=== PATIENT | male | born 1930 | race Caucasian/White ===

== ENCOUNTER 2017-10-08 17:05 | Inpatient (IN) | payer MEDICARE ==
[~2017-10-08] VITALS: Ht 175.3 cm; Wt 68.2 kg
[~2017-10-08 17:05] MED LIST: AMIODARONE HCL200 MG PO; ASPIR 8181 MG PO; ATORVASTATIN CA40 MG PO; CARVEDILOL25 MG PO; CITALOPRAM HBR20 MG PO; FOLBIC TABLET1 EACH PO; FUROSEMIDE40 MG PO; GLIMEPIRIDE1 MG PO; METFORMIN HCL1000 MG PO; NAMENDA10 MG PO; TAMSULOSIN HCL0.4 MG PO; ZESTRIL20 MG PO
[2017-10-08 17:46] LABS: BASOPHILS # (AUTO) 0.1 (0.0-0.1); BASOPHILS % 0.6 % (0.0-1.0); EOSINOPHILS # (AUTO) 0.2 (0.0-0.4); HEMATOCRIT 30.9 % (38.2-49.6); HEMOGLOBIN 10.9 g/dL (14.0-18.0); LYMPHOCYTES # (AUTO) 2.1 (1.0-3.2); LYMPHOCYTES % 25.8 % (18.0-39.1); MEAN CORPUSCULAR HEMOGLOBIN 33.1 pg (28-32); MEAN CORPUSCULAR HGB CONC 35.3 g/dL (31-35); MEAN CORPUSCULAR VOLUME 93.9 fL (81-99); MONOCYTES # (AUTO) 0.5 (0.2-0.8); MONOCYTES % 6.7 % (4.4-11.3); NEUTROPHILS # (AUTO) 5.1 (2.1-6.9); NEUTROPHILS % 63.5 % (38.7-80.0); PLATELET COUNT 195 x10e3/uL (140-360); RED BLOOD COUNT 3.29 x10e6/uL (4.3-5.7); RED CELL DISTRIBUTION WIDTH 13.2 % (11.7-14.4)
[2017-10-08 17:50] LABS: INR 1.06
[2017-10-08 17:51] LABS: PARTIAL THROMBOPLASTIN TIME 28.1 seconds (23.8-35.5)
[2017-10-08 17:57] LABS: ALBUMIN 3.2 g/dL (3.5-5.0); ALBUMIN/GLOBULIN RATIO 0.9 (0.8-2.0); ANION GAP 15.5 mmol/L (8-16); CALCIUM 9.4 mg/dL (8.4-10.2); CREATININE, SERUM 1.81 mg/dL (0.72-1.25); POTASSIUM 3.5 mmol/L (3.5-5.1)
[2017-10-08 18:04] LABS: CREATINE KINASE MB 2.3 ng/mL (0-5.0)
[2017-10-08 18:21] LABS: BILIRUBIN,URINE NEGATIVE (NEGATIVE); CLARITY,URINE SL CLOUDY (CLEAR); COLOR,URINE YELLOW (YELLOW); KETONES,URINE NEGATIVE (NEGATIVE); LEUKOCYTE ESTERASE ,URINE NEGATIVE (NEGATIVE); NITRITE,URINE NEGATIVE (NEGATIVE); PROTEIN,URINE DIPSTICK TRACE (NEGATIVE); URINE UROBILINOGEN 0.2 mg/dL (0.2 - 1)
[2017-10-08 18:31] LABS: AMORPHOUS SEDIMENT,URINE MODERATE (FEW); BACTERIA,URINE MODERATE /HPF
--- NOTE | 2017-10-08 18:37 | Diagnostic Imaging Report ---
PROCEDURE: A single AP view of the chest. COMPARISON: Patients [facility], , CHEST SINGLE (PORTABLE), 01/31/2017, 16:14. INDICATIONS: LEFT SIDE WEAKNESS FINDINGS: Lines/tubes: None. Lungs: The lungs are well inflated and grossly clear. There is no evidence of pneumonia or pulmonary edema. Pleura: There is no pleural effusion or pneumothorax. Heart and mediastinum: Cardiac silhouette is unremarkable. Pulmonary vasculature is normal. Atherosclerotic calcification of the aortic arch. Bones: No acute bony abnormality. Degenerative changes in the right glenohumeral joint. IMPRESSION: 1. No acute cardiopulmonary abnormalities. Uriel Ross M.D. Dictated by: Uriel Ross M.D. on 10/08/2017 at 18:42 Electronically approved by: Uriel Ross M.D. on 10/08/2017 at 18:42
[2017-10-08] MEDS ORDERED: SODIUM CHLORIDE 0.9% 500ML 500 ML IV STA (18:43)
--- NOTE | 2017-10-08 19:43 | Diagnostic Imaging Report ---
EXAMINATION: Head CT without contrast. HISTORY:Altered mental status and left-sided weakness. COMPARISON:CT brain from 01/31/2017. TECHNIQUE: Multidetector axial images were obtained from the foramen magnum to the vertex without contrast. The images were reconstructed using brain and bone algorithms. Thin section brain images were reformatted into coronal and sagittal planes. Intravenous contrast: None IMAGE QUALITY: Acceptable. FINDINGS: Skull/scalp: No lytic or blastic. lesions. No surgical changes. Parenchyma: Nonspecific bilateral frontoparietal patchy white matter hypodensity are likely related to small vessel ischemic changes. 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 No acute hemorrhage, mass or acute major vascular territorial infarct. Arteries: No density suggestive of thrombosis. Dural sinuses: No abnormal density suggestive of thrombosis. Ventricles: Moderate compensated dilatation due to volume loss. Extra-axial spaces: No abnormal density. Brain volume: Generalized age-related cerebral volume loss. Craniocervical junction: No mass, Chiari malformation, or basilar invagination. Sella: No mass. Paranasal/mastoid sinuses: Complete opacification of right maxillary and frontal sinus. Moderate mucosal thickening in bilateral ethmoid sinus. IMPRESSION: 1. No acute intracranial abnormality. No change since CT brain from 01/31/2017. 2. Generalized age-related cerebral volume loss. 3. Mild supratentorial white matter microvascular ischemic changes. Signed by: Dr. Susanne Ritter M.D. on 10/08/2017 7:40 PM
[2017-10-08] MEDS: SODIUM CHLORIDE 0.9% 1000ML 1,000 ML IV SCH (19:52)
[2017-10-08] MEDS ORDERED: ONDANSETRON HCL INJ 2 MG/ML VIAL IV PRN (20:00)
[2017-10-08 20:40] VITALS: BP 124/57
[2017-10-08 21:00] VITALS: BP 124/57
[2017-10-09] VITALS (9 sets, daily range): BP systolic 136–153; BP diastolic 62–71
[2017-10-09] MEDS ORDERED: FERROUS SULFAT325 MG PO (00:54)
[2017-10-09] MEDS ORDERED: FOLIC ACID1 MG PO (00:54)
[2017-10-09] MEDS ORDERED: SENNA LAXATIVE1 EACH PO (00:54)
[2017-10-09] MEDS ORDERED: CLONIDINE HCL0.1 MG PO (00:54)
[2017-10-09] MEDS ORDERED: MULTIVITAMINS1 EAC6 PO (00:54)
[2017-10-09] MEDS ORDERED: NAMENDA10 MG PO (00:54)
[2017-10-09] MEDS ORDERED: ACETAMINOPHEN325 M1 PO (00:54)
[2017-10-09] MEDS ORDERED: RIVASTIGMINE1.5 MG PO (00:54)
[2017-10-09] MEDS ORDERED: CARVEDILOL12.5 MG PO (00:54)
[2017-10-09 05:11] LABS: BASOPHILS % 0.3 % (0.0-1.0); EOSINOPHILS # (AUTO) 0.2 (0.0-0.4); EOSINOPHILS % 3.1 % (0.0-6.0); HEMATOCRIT 27.6 % (38.2-49.6); HEMOGLOBIN 9.7 g/dL (14.0-18.0); LYMPHOCYTES # (AUTO) 2.6 (1.0-3.2); LYMPHOCYTES % 34.6 % (18.0-39.1); MEAN CORPUSCULAR HEMOGLOBIN 33.6 pg (28-32); MEAN CORPUSCULAR HGB CONC 35.1 g/dL (31-35); MEAN CORPUSCULAR VOLUME 95.5 fL (81-99); MONOCYTES # (AUTO) 0.5 (0.2-0.8); MONOCYTES % 6.7 % (4.4-11.3); NEUTROPHILS % 54.9 % (38.7-80.0); PLATELET COUNT 182 x10e3/uL (140-360); RED BLOOD COUNT 2.89 x10e6/uL (4.3-5.7); RED CELL DISTRIBUTION WIDTH 13.2 % (11.7-14.4)
[2017-10-09 05:38] LABS: ANION GAP 13.4 mmol/L (8-16); CALCIUM 8.9 mg/dL (8.4-10.2); CREATININE, SERUM 1.66 mg/dL (0.72-1.25); POTASSIUM 3.4 mmol/L (3.5-5.1)
[2017-10-09] MEDS ORDERED: ACETAMINOPHEN 325 MG TAB PO PRN (07:30)
--- NOTE | 2017-10-09 08:10 | History and Physical ---
REFERRING PHYSICIAN: Dr. Tucker HISTORY OF PRESENT ILLNESS: The patient is an 87-year-old man. He has a history of a prior CABG with a AYALA graft to his LAD. He also has a history of atrial fibrillation. He was previously followed by Dr. Caio Vergara. He also has a history of some baseline dementia. He is on Namenda at the nursing facility. Apparently, they were bathing the patient yesterday and he developed left arm and leg weakness and a left facial droop. He became more disoriented and confused. He subsequently went to the emergency department. His symptoms resolved within 12 hours. PAST SURGICAL HISTORY: Status post coronary artery bypass grafting as noted above. PAST MEDICAL HISTORY 1. Atrial fibrillation. 2. Organic brain syndrome. 3. Diabetes. SOCIAL HISTORY: The patient lives at a nursing facility. He is not a drinker or smoker. FAMILY HISTORY: Noncontributory. ALLERGIES: HYDROCHLOROTHIAZIDE. REVIEW OF SYSTEMS: There is no history of fevers. He did not complain of headaches. He denied neck pain. There is no chest pain or difficulty breathing or cough. He did not have nausea or vomiting. There was no leg edema. He did have transient on the left side along with transient facial droop. PHYSICAL EXAMINATION VITALS: The patient is afebrile. The blood pressure is 142/66, pulse 62. HEENT: Shows no facial swelling or erythema. The nasal mucosa is normal. The oropharynx is normal. LYMPHATICS: Shows no submandibular, cervical or supraclavicular lymphadenopathy. CARDIAC: Reveals a regular rate and rhythm with normal S1 and S2. There are no murmurs or rubs. LUNGS: Auscultation of the lungs reveals clear breath sounds bilaterally. There is no wheezing. ABDOMEN: Soft and nontender. There is no rebound or guarding. EXTREMITIES: Shows no leg edema or calf tenderness. There is no cyanosis or clubbing. SKIN: Shows no rashes. NEUROLOGICAL: Shows the patient to be disoriented. LABORATORY DATA: The white blood cell count is 7.3, hemoglobin 9.7 and the platelet count is 182,000. The BUN to creatinine ratio is 28 to 1.66. The other electrolytes are within normal limits. IMPRESSION 1. Metabolic encephalopathy. 2. Transient ischemic attacks with underlying atrial fibrillation. 3. Anemia secondary to chronic blood loss. 4. Stage 3 chronic renal failure. 5. Diabetes. 6. Atrial fibrillation. PLAN 1. The patient will have a neurological workup. 2. Carotid duplex and cardiology evaluation. 3. Physical therapy. 4. Nutritional evaluation. 5. Discussed potential need for anticoagulation or further carotid imaging with cardiology and neurology. Job#: [id number] RI [email or web address]
[2017-10-09] MEDS ORDERED: TAMSULOSIN HCL 0.4 MG CAP PO SCH (09:00)
[2017-10-09] MEDS: RIVASTIGMINE TARTRATE 1.5 MG CAP PO SCH ×2 (09:25→17:31)
[2017-10-09] MEDS: CARVEDILOL 12.5 MG TAB PO SCH ×2 (09:25→17:31)
[2017-10-09] MEDS: AMIODARONE HCL 200 MG TAB PO SCH (09:25)
[2017-10-09] MEDS: ASPIRIN 81 MG CHEW TAB PO SCH (09:25)
[2017-10-09] MEDS: CITALOPRAM HYDROBROMIDE 20 MG TAB PO SCH (09:25)
[2017-10-09] MEDS: FOLIC ACID 1 MG TAB PO SCH (09:26)
[2017-10-09] MEDS: MEMANTINE 10 MG TAB PO SCH ×2 (09:26→17:31)
[2017-10-09] MEDS: MULTIVITAMINS/MINERALS TAB PO SCH (09:26)
[2017-10-09] MEDS: FERROUS SULFATE 325 MG TAB PO SCH (09:26)
[2017-10-09] MEDS: SODIUM CHLORIDE 0.9% 1000ML 1,000 ML IV SCH (11:41)
[2017-10-09 17:53] LABS: CHOL/HDL RATIO 6.7 (3.9-4.7)
--- NOTE | 2017-10-09 19:17 | Consultation ---
DATE OF CONSULTATION: October 09, 2017 NEUROLOGY CONSULTATION HISTORY OF PRESENT ILLNESS: Mr. Lion is an 87-year-old right-hand dominant man with past medical history significant for hypertension, hyperlipidemia, diabetes mellitus, coronary artery disease, and atrial fibrillation admitted to [facility] on October 08, 2017, with symptoms suspicious for transient ischemic attack. At approximately 2100 on October 07, 2017, the patient was at his f[facility] when he was witnessed to experience the abrupt onset of worsened disorientation and confusion, left facial droop, and left hemiparesis. Neither the presence of other symptoms nor the duration of these symptoms is unknown. Mr. Lion was brought to the emergency center at [facility] on the evening of October 08, 2017, for further evaluation. His son does report the patient experienced similar symptoms 3 days prior to admission (October 05, 2017). At that time, the symptoms persisted for approximately 5-10 minutes, then spontaneously resolved. Upon admission to the emergency center, the patient was afebrile with a blood pressure 128/89 mmHg and a pulse of 68 beats per minute. His neurological examination is documented as follows: Alert. Oriented times 3. No alteration in mental status. Not disoriented. Alertness is not decreased. Verbal response is not abnormal. Response to pain is not abnormal. No aphasia. Mood/affect normal. Speech normal. No dysphagia. No cranial nerve deficit, facial weakness or decrease in corneal reflex. No cerebellar findings. No motor deficits. The patient has generalized weakness. No sensory deficit. Abnormal gait. Unable to ambulate. No depression of the gag reflex. A CT of the brain without contrast was performed in the emergency center, and did not show evidence of recent large territorial ischemia, hemorrhage, mass, or mass effect. Mr. Lion was admitted to [facility] initially under observation status, but subsequently changed to inpatient patient status for further evaluation and treatment of his symptoms. REVIEW OF SYSTEMS: Unable to assess secondary to the patient having dementia. PAST MEDICAL HISTORY: Hypertension, hyperlipidemia, diabetes mellitus, type 2, coronary artery disease, atrial fibrillation, chronic kidney disease, stage 3, mixed depression/anxiety disorder, skin cancer, symptomatic bradycardia, dementia, benign prostatic hypertrophy, chronic constipation, difficulty urinating, anemia of chronic disease. PAST SURGICAL HISTORY: One-vessel CABG, pacemaker placement, resection of multiple skin cancers, multiple bladder surgeries, repair of right retinal detachment. PAST HOSPITALIZATIONS: Surgeries/procedures as listed. Hypertensive urgency, multiple hospitalizations for falls. FAMILY HISTORY: The patient's paternal and maternal grandparents are . Their medical histories are unknown. The patient's father is from lung disease (black lung disease). The patient's mother is . Other than an undiagnosed psychiatric order, or disorders, her medical history is unknown. Mr. Lion had 1 brother. He is from complications of Alzheimer's disease. The patient has 1 son who is alive. He has hyperlipidemia, diabetes mellitus, type 2, and benign prostatic hypertrophy. SOCIAL HISTORY: Mr. Lion is . He lives with his in a fci. The patient graduated high school. Mr. Lion is retired. He previously worked in the [email or web address] along the [employer]. There is no known current or prior tobacco or recreational drug use. Mr. Lion occasionally drinks an alcoholic beverage. HOME MEDICATIONS 1. Acetaminophen 650 mg by mouth every 6 hours as needed. 2. Amiodarone 200 mg by mouth daily. 3. Aspirin 81 mg by mouth daily. 4. Coreg 25 mg by mouth twice daily. 5. Celexa 10 mg by mouth daily. 6. Clonidine 0.1 mg by mouth every 8 hours as needed. 7. Folbic tablet 1 tablet by mouth daily. 8. Ferrous sulfate 325 mg by mouth daily. 9. Folic acid 400 mcg by mouth daily. 10. Lasix 40 mg by mouth daily. 11. Glimepiride 1 mg by mouth daily. 12. Memantine 10 mg by mouth twice daily. 13. Rivastigmine 4.5 mg by mouth twice daily. 14. Tamsulosin 0.4 mg by mouth daily. 15. Multivitamin 1 tablet by mouth daily. 16. Senna laxative tablet 2 tablets by mouth at bedtime daily. ALLERGIES: NO KNOWN DRUG ALLERGIES. MR. LION IS ALLERGIC TO SHELLFISH AND IODINE. NO KNOWN LATEX ALLERGY. PHYSICAL EXAMINATION VITAL SIGNS: Height 69 inches, weight pending. BMI pending. Blood pressure 153/65 mmHg, pulse 60 beats per minute, respiratory rate 16 breaths per minute, oxygen saturation 96% on room air. GENERAL: Patient is awake, alert and does not appear distressed. HEENT: Normocephalic and atraumatic. The left pupil is round and reactive to light. The right pupil is surgical. Moist mucous membranes. NECK: Supple. No appreciable thyromegaly. No appreciable carotid bruits. CARDIOVASCULAR: S1 and S2. Regular rate and rhythm. No murmurs, rubs, or gallops. RESPIRATORY: Clear to auscultation bilaterally. No wheezes, rhonchi or rales. EXTREMITIES: The skin is warm and dry. No clubbing, cyanosis, or edema. The posterior tibial and dorsalis pedis pulses are 1+ and symmetric. SKIN: Dry flaking skin and small abrasions over the scalp. NEUROLOGIC: Memory/attention: The patient is awake and alert, oriented to person only. CRANIAL NERVES: Cranial nerve I: Not tested. Cranial nerve II, III, IV, : The left pupil is round and reactive to light (from 4 mm to 2 mm). The right pupil is surgical. Extraocular movements intact. No nystagmus. Cranial nerve V: Sensation to light touch and pinprick is intact in the bilateral V1 through V3 distributions. Strength of the temporalis and masseter muscles is within normal limits. Cranial nerve VII: The face is symmetric as are all facial movements. Strength is within normal limits. Cranial nerve VIII: Hearing is diminished to finger rub bilaterally. Cranial nerve IX and X: The soft palate elevates equally and symmetrically. Cranial nerve XI: Normal strength of the bilateral sternocleidomastoid and trapezius muscles. Cranial nerve XII: The tongue protrudes midline and moves symmetrically from side to side. STRENGTH: Bulk is mildly decreased throughout. Strength is 5/5 in the bilateral deltoids, biceps, triceps, wrist flexors and extensors, finger flexors and extensors, intrinsic hand muscles, hip flexors, knee flexors and extensors, ankle dorsiflexion and plantar flexion, and intrinsic foot muscles. Tone is normal. DTRs: Are 1+ and symmetric at the triceps, biceps, brachioradialis, and patellas. Deep tendon reflexes are absent and symmetric at the Achilles. Plantar responses are flexor bilaterally. SENSATION: Intact to light touch and pinprick in both arms and both legs. CEREBELLAR: Xtkjhg-tmxv-pqymrn and heel-severino movements are intact without dysmetria or other impairment. GAIT: Deferred. SPEECH: Spontaneous speech is normal without appreciable dysarthria or aphasia. Repetition is intact. INVOLUNTARY MOVEMENTS: None. PRONATOR DRIFT: None. LABORATORY DATA: Sodium 137, potassium 3.4, chloride 100, carbon dioxide 27, anion gap 13.4, BUN 28, creatinine 1.66, estimated GFR 39, BUN to creatinine ratio 17, and glucose 95. Calcium 8.9. From October 08, 2017, total bilirubin 0.5, AST 26, ALT 17, alkaline phosphatase 126, total protein 6.9, albumin 3.2, globulin 3.7. Albumin to globulin ratio 0.9. From October 08, 2017, creatinine kinase 77, CK-MB 2.3, troponin I 0.045. CBC with differential and platelets reveals a white blood cell count of 7.36 with a normal differential. The hemoglobin and hematocrit are 9.7 and 27.6 respectively. The platelet count is 182,000. PT 13, INR 1.06 and PTT 28.1. Urinalysis is significant for trace protein, moderate amorphous sediment, moderate urine bacteria, 2-5 hyaline casts. DIAGNOSTIC STUDIES: EKG on October 08, 2017, paced rhythm at 60 beats per minute. Left axis deviation. Right bundle branch block. Chest x-ray of October 08, 2017, no acute cardiopulmonary abnormalities. CT of the brain without contrast on October 08, 2017, on my review, there is no evidence of recent large territorial ischemia, hemorrhage, mass, or mass effect. There is diffuse cerebral atrophy, appropriate for age. There are findings compatible with mild to moderate chronic small vessel ischemic disease. Echocardiogram on October 09, 2017, ejection fraction 55% to 60%. Concentric left ventricular hypertrophy. Left atrial enlargement. Mild mitral and tricuspid regurgitation. Bilateral carotid artery ultrasound with Doppler on October 09, 2017, there is atherosclerosis without hemodynamically significant stenosis at the bilateral carotid bulbs and bifurcations. ASSESSMENT AND PLAN: Mr. Loin is an 87-year-old right-hand dominant man with multiple vascular risk factors admitted to [facility] with a transient ischemic attack. At present, other than cognitive deficits, the patient's neurological examination is nonfocal. His laboratory data and other diagnostic studies have been reviewed and are documented above. RECOMMENDATIONS 1. A lipid panel and hemoglobin A1c will be ordered. 2. At present, continue aspirin 81 mg by mouth daily for stroke prophylaxis. Due to his history of multiple falls, the patient is a poor candidate for anticoagulation. However, due to the occurrence of a transient ischemic attack while taking aspirin 81 mg by mouth daily, a change to Plavix 75 mg by mouth daily is indicated. This will be discussed with the patient's electronic parts designer. 3. The patient's blood pressure may be gradually normalize. His goal blood pressure is less than 140/90 mmHg. 4. Follow up the results of the panel. The patient's goal total cholesterol is less than 200 with a LDL less than 70. 5. Follow up the results of the hemoglobin A1c. Continue the patient's home medications. Tight glycemic control is recommended while the patient is in the hospital. 6. A physical therapy evaluation has been ordered and is pending. A speech therapy evaluation will be ordered as well. 7. GI prophylaxis with Pepcid 20 mg by mouth twice daily before meals. DVT prophylaxis with heparin 5000 units subcutaneously every 12 hours. 8. For dementia, continue the home medications. 9. Defer treatment of the remaining medical comorbidities to the primary and other services following the patient. Thank you for this consultation. I will continue to follow this patient while he remains in the hospital. Time spent 70 minutes. Job#: [id number] JIE DANIEL
[2017-10-09] MEDS ORDERED: SENNOSIDES 8.6 MG TAB PO SCH (21:00)
[2017-10-09] MEDS: TAMSULOSIN HCL 0.4 MG CAP PO SCH (21:02)
[2017-10-09] MEDS: SENNOSIDES 8.6 MG TAB PO SCH (21:03)
[2017-10-09] MEDS: HEPARIN SOD (PORCINE) 5,000 UNIT/ML VIAL SC SCH (21:04)
[2017-10-10] VITALS (7 sets, daily range): BP systolic 133–164; BP diastolic 60–77
[2017-10-10] MEDS: SODIUM CHLORIDE 0.9% 1000ML 1,000 ML IV SCH ×2 (04:06→11:52)
[2017-10-10 05:13] LABS: BASOPHILS % 0.5 % (0.0-1.0); EOSINOPHILS # (AUTO) 0.3 (0.0-0.4); EOSINOPHILS % 3.9 % (0.0-6.0); HEMATOCRIT 28.1 % (38.2-49.6); HEMOGLOBIN 9.6 g/dL (14.0-18.0); LYMPHOCYTES # (AUTO) 2.5 (1.0-3.2); MEAN CORPUSCULAR HGB CONC 34.2 g/dL (31-35); MEAN CORPUSCULAR VOLUME 96.6 fL (81-99); MONOCYTES # (AUTO) 0.3 (0.2-0.8); MONOCYTES % 5.2 % (4.4-11.3); NEUTROPHILS # (AUTO) 3.2 (2.1-6.9); NEUTROPHILS % 51.1 % (38.7-80.0); PLATELET COUNT 181 x10e3/uL (140-360); RED BLOOD COUNT 2.91 x10e6/uL (4.3-5.7); RED CELL DISTRIBUTION WIDTH 13.3 % (11.7-14.4)
[2017-10-10 06:12] LABS: ALBUMIN/GLOBULIN RATIO 0.9 (0.8-2.0); ANION GAP 12.5 mmol/L (8-16); CALCIUM 8.7 mg/dL (8.4-10.2); CREATININE, SERUM 1.52 mg/dL (0.72-1.25); POTASSIUM 3.5 mmol/L (3.5-5.1)
[2017-10-10] MEDS: AMIODARONE HCL 200 MG TAB PO SCH (08:39)
[2017-10-10] MEDS: CITALOPRAM HYDROBROMIDE 20 MG TAB PO SCH (08:39)
[2017-10-10] MEDS: FOLIC ACID 1 MG TAB PO SCH (08:39)
[2017-10-10] MEDS: FAMOTIDINE 20 MG TAB PO SCH ×2 (08:39→16:40)
[2017-10-10] MEDS: MULTIVITAMINS/MINERALS TAB PO SCH (08:39)
[2017-10-10] MEDS: ASPIRIN 81 MG CHEW TAB PO SCH (08:39)
[2017-10-10] MEDS: RIVASTIGMINE TARTRATE 1.5 MG CAP PO SCH ×2 (08:39→16:40)
[2017-10-10] MEDS: CARVEDILOL 12.5 MG TAB PO SCH ×2 (08:39→16:40)
[2017-10-10] MEDS: MEMANTINE 10 MG TAB PO SCH ×2 (08:39→16:40)
[2017-10-10] MEDS: FERROUS SULFATE 325 MG TAB PO SCH (08:39)
[2017-10-10] MEDS: HEPARIN SOD (PORCINE) 5,000 UNIT/ML VIAL SC SCH ×2 (08:40→21:00)
[2017-10-10] MEDS ORDERED: DEXTROSE 50% SYRINGE 50 ML IV PRN (15:45)
[2017-10-10] MEDS: RIVAROXABAN 10 MG TABLET PO SCH (16:40)
[2017-10-10] MEDS: INSULIN REGULAR, HUMAN 100 UNIT/1 ML 3ML VIAL SQ SCH ×2 (16:40→21:00)
[2017-10-10] MEDS: SENNOSIDES 8.6 MG TAB PO SCH (22:10)
[2017-10-10] MEDS: SIMVASTATIN 20 MG TAB PO SCH (22:10)
[2017-10-10] MEDS: TAMSULOSIN HCL 0.4 MG CAP PO SCH (22:11)
[2017-10-11] VITALS (8 sets, daily range): BP systolic 131–195; BP diastolic 63–95
--- NOTE | 2017-10-11 01:04 | Consultation ---
DATE OF CONSULTATION: October 09, [address] Amanda on the 09 of October and seen on the 09 of October. HISTORY: This 87-year-old patient was kindly referred by Dr. Amanda for cardiac evaluation. The patient is halfway resident and was noted to have increasing confusion, disorientation, and some transient left hemiparesis with left facial droop, which apparently has resolved quickly. The patient does have dementia and Alzheimer's disease. He also has permanent pacemaker and history of steffi-tachy arrhythmia with paroxysmal atrial fibrillation. However, at the present time, he is noted to be in AV sequential pacing without any dysrhythmia. PAST HISTORY: Reveals that he has hypertension, chronic kidney disease stage 3 to 4, diabetes mellitus, and chronic anemia. He also has degenerative joint disease, benign prostatic hypertrophy. ALLERGIES: THE PATIENT IS ALLERGIC TO SHELLFISH AND HYDROCHLOROTHIAZIDE WHICH APPARENTLY HAS CAUSED SEVERE THROMBOCYTOPENIA AND NEUTROPENIA MOST LIKELY SECONDARY TO BEING ALLERGIC TO SULFA. HE ALSO HAS HAYFEVER. SOCIAL HISTORY: Negative. FAMILY HISTORY: Noncontributory. REVIEW OF SYSTEMS: Remainder of systems reviewed, is difficult to assess since the patient is a poor historian. However, he denies any chest pain or shortness of breath and he denies any palpitations. PHYSICAL EXAMINATION: VITAL SIGNS: Reveals a blood pressure 140/70. He is afebrile. NECK: Carotid pulses are present. CHEST: Clear to auscultation. CARDIOVASCULAR SYSTEM: Reveals a normal apical impulse. The rhythm is regular. First and second are normal. There is no S3. There is no rub. ABDOMEN: Soft. There is no tenderness or organomegaly. EXTREMITIES: Posterior tibial pulses are present bilaterally. SKIN: Warm and dry, but he is showing pallor. NEUROLOGIC: Does not reveal any localizing neurological defect. IMPRESSION: 1. Altered mental status with transient ischemic attack. 2. Coronary artery disease, postop aortocoronary bypass procedure with left internal mammary artery to the left anterior descending artery. 3. Sick sinus syndrome with paroxysmal atrial fibrillation and permanent pacemaker. 4. Diabetes mellitus. 5. Chronic kidney disease. 6. Hypertensive cardiovascular disease. 7. Benign prostatic hypertrophy. 8. Anemia. 9. Dementia and Alzheimer's disease. Telemetry shows regular AV sequential paced rhythm, and I agree with present excellent management and treatment plan. I will be glad to review the patient's carotid ultrasound study and also recommend to obtain an echocardiogram and to assess the patient's left ventricular function. Thank you very much for letting me see this very nice patient. Job#: [id number]
[2017-10-11] MEDS: SODIUM CHLORIDE 0.9% 1000ML 1,000 ML IV SCH ×2 (01:12→22:42)
[2017-10-11] MEDS: INSULIN REGULAR, HUMAN 100 UNIT/1 ML 3ML VIAL SQ SCH ×4 (07:30→20:47)
[2017-10-11] MEDS: CITALOPRAM HYDROBROMIDE 20 MG TAB PO SCH (09:50)
[2017-10-11] MEDS: FAMOTIDINE 20 MG TAB PO SCH ×2 (09:50→17:08)
[2017-10-11] MEDS: ASPIRIN 81 MG CHEW TAB PO SCH (09:50)
[2017-10-11] MEDS: CARVEDILOL 12.5 MG TAB PO SCH ×2 (09:50→17:08)
[2017-10-11] MEDS: FERROUS SULFATE 325 MG TAB PO SCH (09:51)
[2017-10-11] MEDS: MEMANTINE 10 MG TAB PO SCH ×2 (09:51→17:08)
[2017-10-11] MEDS: MULTIVITAMINS/MINERALS TAB PO SCH (09:51)
[2017-10-11] MEDS: AMIODARONE HCL 200 MG TAB PO SCH (09:51)
[2017-10-11] MEDS: RIVASTIGMINE TARTRATE 1.5 MG CAP PO SCH ×2 (09:51→17:08)
[2017-10-11] MEDS: HEPARIN SOD (PORCINE) 5,000 UNIT/ML VIAL SC SCH (09:51)
[2017-10-11] MEDS: FOLIC ACID 1 MG TAB PO SCH (09:51)
[2017-10-11] MEDS: RIVAROXABAN 10 MG TABLET PO SCH (17:08)
[2017-10-11] MEDS: SIMVASTATIN 20 MG TAB PO SCH (20:46)
[2017-10-11] MEDS: SENNOSIDES 8.6 MG TAB PO SCH (20:46)
[2017-10-11] MEDS: TAMSULOSIN HCL 0.4 MG CAP PO SCH (20:46)
[2017-10-12] VITALS (7 sets, daily range): BP systolic 140–181; BP diastolic 67–84
[2017-10-12] MEDS: CLONIDINE HCL 0.1 MG TAB PO PRN (03:53)
[2017-10-12 05:00] LABS: BASOPHILS % 0.5 % (0.0-1.0); EOSINOPHILS # (AUTO) 0.2 (0.0-0.4); EOSINOPHILS % 3.8 % (0.0-6.0); HEMATOCRIT 24.7 % (38.2-49.6); HEMOGLOBIN 8.7 g/dL (14.0-18.0); LYMPHOCYTES # (AUTO) 1.9 (1.0-3.2); LYMPHOCYTES % 31.8 % (18.0-39.1); MEAN CORPUSCULAR HEMOGLOBIN 33.5 pg (28-32); MEAN CORPUSCULAR HGB CONC 35.2 g/dL (31-35); MONOCYTES # (AUTO) 0.4 (0.2-0.8); NEUTROPHILS # (AUTO) 3.5 (2.1-6.9); NEUTROPHILS % 57.6 % (38.7-80.0); PLATELET COUNT 164 x10e3/uL (140-360); RED CELL DISTRIBUTION WIDTH 13.5 % (11.7-14.4)
[2017-10-12 05:17] LABS: ALBUMIN 2.6 g/dL (3.5-5.0); ANION GAP 9.8 mmol/L (8-16); CALCIUM 8.5 mg/dL (8.4-10.2); CREATININE, SERUM 1.43 mg/dL (0.72-1.25); POTASSIUM 3.8 mmol/L (3.5-5.1)
[2017-10-12] MEDS: INSULIN REGULAR, HUMAN 100 UNIT/1 ML 3ML VIAL SQ SCH ×4 (07:30→21:58)
[2017-10-12] MEDS: FAMOTIDINE 20 MG TAB PO SCH (07:52)
[2017-10-12] MEDS: CITALOPRAM HYDROBROMIDE 20 MG TAB PO SCH (07:53)
[2017-10-12] MEDS: ASPIRIN 81 MG CHEW TAB PO SCH (07:53)
[2017-10-12] MEDS: CARVEDILOL 12.5 MG TAB PO SCH ×2 (07:53→17:19)
[2017-10-12] MEDS: AMIODARONE HCL 200 MG TAB PO SCH (07:53)
[2017-10-12] MEDS: RIVASTIGMINE TARTRATE 1.5 MG CAP PO SCH ×2 (07:53→17:19)
[2017-10-12] MEDS: MULTIVITAMINS/MINERALS TAB PO SCH (07:54)
[2017-10-12] MEDS: MEMANTINE 10 MG TAB PO SCH ×2 (07:54→17:19)
[2017-10-12] MEDS: FERROUS SULFATE 325 MG TAB PO SCH (07:54)
[2017-10-12] MEDS: FOLIC ACID 1 MG TAB PO SCH (07:54)
--- NOTE | 2017-10-12 10:58 | Diagnostic Imaging Report ---
PROCEDURE: Frontal and lateral views of the chest. COMPARISON: 10/08/17 INDICATIONS: FLUID OVERLOAD FINDINGS: Lines/tubes: Stable dual-lead left chest wall cardiac device. Lungs: The lungs are well inflated. There is no evidence of pneumonia or pulmonary edema. Unchanged right lower lung field calcified granuloma. Pleura: There is no pleural effusion or pneumothorax. Heart and mediastinum: The heart and the mediastinum are normal. Calcified bilateral hilar lymph nodes, right greater than left. Bones: No acute bony abnormality. Degenerative changes of thoracic spine. IMPRESSION: 1. No acute cardiopulmonary disease. Dictated by: Ricardo Perez M.D. on 10/12/2017 at 11:02 Electronically approved by: Ricardo Perez M.D. on 10/12/2017 at 11:02
[2017-10-12] MEDS ORDERED: FUROSEMIDE INJ 10 MG/ML 2 ML VIAL IV PRN (12:15)
[2017-10-12] MEDS ORDERED: SODIUM CHLORIDE 0.9% 250ML 250 ML IV ONE (12:15)
[2017-10-12] MEDS: PANTOPRAZOLE SOD 40 MG TABEC PO SCH (13:45)
[2017-10-12] MEDS: SODIUM CHLORIDE 0.9% 1000ML 1,000 ML IV SCH ×2 (13:45→17:12)
[2017-10-12 15:39] LABS: HEMATOCRIT 27.1 % (38.2-49.6); HEMOGLOBIN 9.4 g/dL (14.0-18.0)
[2017-10-12] MEDS: SUCRALFATE 1 GM TAB PO SCH (17:19)
[2017-10-12] MEDS: RIVAROXABAN 10 MG TABLET PO SCH (17:19)
[2017-10-12] MEDS ORDERED: CARVEDILOL 12.5 MG TAB PO NR (18:00)
[2017-10-12] MEDS: TAMSULOSIN HCL 0.4 MG CAP PO SCH (21:55)
[2017-10-12] MEDS: SENNOSIDES 8.6 MG TAB PO SCH (21:55)
[2017-10-12] MEDS: SIMVASTATIN 20 MG TAB PO SCH (21:55)
[2017-10-13] VITALS (8 sets, daily range): BP systolic 130–192; BP diastolic 58–79
[2017-10-13] MEDS: CLONIDINE HCL 0.1 MG TAB PO PRN (00:15)
[2017-10-13 05:08] LABS: BASOPHILS % 0.5 % (0.0-1.0); EOSINOPHILS # (AUTO) 0.3 (0.0-0.4); EOSINOPHILS % 3.9 % (0.0-6.0); HEMATOCRIT 23.5 % (38.2-49.6); HEMOGLOBIN 8.3 g/dL (14.0-18.0); LYMPHOCYTES # (AUTO) 2.2 (1.0-3.2); LYMPHOCYTES % 33.8 % (18.0-39.1); MEAN CORPUSCULAR HEMOGLOBIN 33.6 pg (28-32); MEAN CORPUSCULAR HGB CONC 35.3 g/dL (31-35); MEAN CORPUSCULAR VOLUME 95.1 fL (81-99); MONOCYTES # (AUTO) 0.4 (0.2-0.8); MONOCYTES % 6.3 % (4.4-11.3); NEUTROPHILS # (AUTO) 3.5 (2.1-6.9); NEUTROPHILS % 54.7 % (38.7-80.0); PLATELET COUNT 195 x10e3/uL (140-360); RED BLOOD COUNT 2.47 x10e6/uL (4.3-5.7); RED CELL DISTRIBUTION WIDTH 13.6 % (11.7-14.4)
[2017-10-13 05:31] LABS: ALBUMIN 2.7 g/dL (3.5-5.0); CALCIUM 8.6 mg/dL (8.4-10.2); CREATININE, SERUM 1.42 mg/dL (0.72-1.25); MAGNESIUM 1.5 MG/DL (1.3-2.1)
[2017-10-13] MEDS: INSULIN REGULAR, HUMAN 100 UNIT/1 ML 3ML VIAL SQ SCH ×4 (07:30→21:05)
[2017-10-13] MEDS: PANTOPRAZOLE SOD 40 MG TABEC PO SCH (08:34)
[2017-10-13] MEDS: MULTIVITAMINS/MINERALS TAB PO SCH (08:34)
[2017-10-13] MEDS: CARVEDILOL 12.5 MG TAB PO SCH ×2 (08:34→16:08)
[2017-10-13] MEDS: FOLIC ACID 1 MG TAB PO SCH (08:34)
[2017-10-13] MEDS: RIVASTIGMINE TARTRATE 1.5 MG CAP PO SCH ×2 (08:34→16:08)
[2017-10-13] MEDS: FERROUS SULFATE 325 MG TAB PO SCH (08:34)
[2017-10-13] MEDS: AMIODARONE HCL 200 MG TAB PO SCH (08:34)
[2017-10-13] MEDS: ASPIRIN 81 MG CHEW TAB PO SCH (08:34)
[2017-10-13] MEDS: CITALOPRAM HYDROBROMIDE 20 MG TAB PO SCH (08:34)
[2017-10-13] MEDS: SUCRALFATE 1 GM TAB PO SCH ×2 (08:34→16:07)
[2017-10-13] MEDS: SODIUM CHLORIDE 0.9% 1000ML 1,000 ML IV SCH ×2 (08:34→21:03)
[2017-10-13] MEDS: MEMANTINE 10 MG TAB PO SCH ×2 (08:35→16:08)
[2017-10-13] MEDS ORDERED: CITRATE OF MAGNESIA 300ML BOTTLE PO ONE (18:10)
--- NOTE | 2017-10-13 18:23 | Consultation ---
DATE OF CONSULTATION: GASTROENTEROLOGY CONSULTATION HISTORY OF PRESENT ILLNESS: B[age]ge[age]-old gentleman, assisted placement, with a history of Alzheimer dementia, confused, hypertension, chronic renal insufficiency, atrial fibrillation, benign prostate hypertrophy, degenerative joint disease, diabetes. Admitted after he had transient left hemiparesis. Neurology was consulted, and I was asked to see him for evaluation of his anemia. MEDICAL HISTORY: Limited from patient. According to our nursing staff and patient himself, no GI complaint such as nausea and vomiting, hematemesis, acid reflux, heartburn, abdominal pain or lower GI bleed. Of course, no record of any GI workup done. This probably has to be obtained from his family. ALLERGY: TO SHELLFISH. MEDICINE: He is on Coreg, rivastigmine tartrate, Namenda, Carafate, Protonix, multivitamin, folic acid, ferrous sulfate, Celexa, aspirin, amiodarone, Zocor, clonidine, Lasix, simvastatin, Flomax, Senokot and Zofran. SOCIALLY: Does not smoke or drink, is a assisted patient. PHYSICAL EXAMINATION VITAL SIGNS: Temperature today 97, pulse 75, respiratory rate 20, blood pressure 155/70. GENERAL: Patient is awake, alert, not fully oriented. NECK: Supple. LUNGS: Clear. HEART: Regular-regular, occasional irregular beat. ABDOMEN: Soft. Nontender. Not distended. No acute signs. EXTREMITIES: No edema. LAB: Hemoglobin 8, hematocrit 23, platelet 193, white cell count 6.3. Patient's stool was ordered to be guaiaked. However, according to the nurse, for 2 days has not had any bowel movement. Sodium 136, potassium is 4, BUN 18, creatinine 1.42. Liver function normal. Calcium 8.6. Urinalysis unremarkable. Urine culture is negative. PT, PTT, INR normal. CHEST X-RAY: Unremarkable. IMPRESSION: Anemia, no evidence of active gastrointestinal bleed. This could be related to chronic illness or subtle GI bleed due to benign things like arteriovenous malformation or, of course, more malignant things such as malignancy. Patient is 87 years old, not in the best shape to consider endoscopy at this point, especially there are no signs of active bleeding. Because no bowel movement in the past 2 days, I am going to place him on laxative, and hopefully we can get to guaiac his stool. Will keep him on Protonix and Carafate. Also, I will check his anemia workup which includes B12, iron study and RBC, folate, and will follow with you. Job#: [id number] HEATH
[2017-10-13] MEDS: TAMSULOSIN HCL 0.4 MG CAP PO SCH (21:04)
[2017-10-13] MEDS: SIMVASTATIN 20 MG TAB PO SCH (21:04)
[2017-10-13] MEDS: SENNOSIDES 8.6 MG TAB PO SCH (21:04)
[2017-10-13 21:19] LABS: FERRITIN 242.48 ng/mL (21.81-274.66)
[2017-10-14] VITALS (8 sets, daily range): BP systolic 143–193; BP diastolic 63–93
[2017-10-14] MEDS: INSULIN REGULAR, HUMAN 100 UNIT/1 ML 3ML VIAL SQ SCH ×4 (07:30→20:56)
[2017-10-14] MEDS: SUCRALFATE 1 GM TAB PO SCH ×2 (08:26→17:15)
[2017-10-14] MEDS: PANTOPRAZOLE SOD 40 MG TABEC PO SCH (08:26)
[2017-10-14] MEDS: ASPIRIN 81 MG CHEW TAB PO SCH (08:27)
[2017-10-14] MEDS: AMIODARONE HCL 200 MG TAB PO SCH (08:27)
[2017-10-14] MEDS: RIVASTIGMINE TARTRATE 1.5 MG CAP PO SCH ×2 (08:27→17:00)
[2017-10-14] MEDS: MULTIVITAMINS/MINERALS TAB PO SCH (08:27)
[2017-10-14] MEDS: CITALOPRAM HYDROBROMIDE 20 MG TAB PO SCH (08:27)
[2017-10-14] MEDS: FERROUS SULFATE 325 MG TAB PO SCH (08:27)
[2017-10-14] MEDS: POLYETHYLENE GLYCOL 3350 17 GM PACK PO SCH ×2 (08:27→17:16)
[2017-10-14] MEDS: FOLIC ACID 1 MG TAB PO SCH (08:27)
[2017-10-14] MEDS: MEMANTINE 10 MG TAB PO SCH ×2 (08:27→17:16)
[2017-10-14] MEDS: CARVEDILOL 12.5 MG TAB PO SCH ×2 (08:27→17:00)
[2017-10-14] MEDS: SODIUM CHLORIDE 0.9% 1000ML 1,000 ML IV SCH ×2 (09:00→22:32)
--- NOTE | 2017-10-14 16:08 | Progress Note ---
DATE: October 14, 2017 Overall from GI standpoint, Mr. Sanders is stable. Not any obvious GI complaints such as indigestion, heartburn, acid reflux, abdominal discomfort or holger GI bleed. His constipation was managed yesterday by magnesium citrate and MiraLAX, and he had several bowel movements which positive for blood. No CBC done on him today. His anemia workup revealed B12 normal, iron saturation normal, percentage reticulocytes 2.3, RBC, folate still pending. Hemodynamically stable. Temperature 97, pulse 60, respiratory rate 18, blood pressure 151/63. He is still on Protonix. I discussed his case over the phone thoroughly with his son, and we came to agreement that we are going to watch his hemoglobin, hematocrit for the next couple of days. If the trend is down, then, of course we have to do transfusion because the last hemoglobin was 8.3, and if that trend is down besides transfusing him we are going to go ahead and do endoscopy. If he stopped downward trend with his blood count, then we will leave him alone, as per his son, his dad is 88 years old and has numerous medical problems, and he does not want him to undergo such a procedure. So the plan is to monitor his hemoglobin and hematocrit. If he continues to drop, will transfuse him and will plan for endoscopy. Will keep him on Protonix, and in the meantime, his blood thinner, the Xarelto, was stopped 46 hours ago, so we are okay as far as proceeding with endoscopy in case he needs it. Job#: [id number]
[2017-10-14 16:13] LABS: BASOPHILS % 0.5 % (0.0-1.0); EOSINOPHILS # (AUTO) 0.3 (0.0-0.4); EOSINOPHILS % 4.4 % (0.0-6.0); HEMATOCRIT 25.1 % (38.2-49.6); HEMOGLOBIN 8.7 g/dL (14.0-18.0); LYMPHOCYTES # (AUTO) 1.6 (1.0-3.2); LYMPHOCYTES % 26.5 % (18.0-39.1); MEAN CORPUSCULAR HEMOGLOBIN 33.1 pg (28-32); MEAN CORPUSCULAR HGB CONC 34.7 g/dL (31-35); MEAN CORPUSCULAR VOLUME 95.4 fL (81-99); MONOCYTES # (AUTO) 0.4 (0.2-0.8); MONOCYTES % 6.4 % (4.4-11.3); NEUTROPHILS # (AUTO) 3.8 (2.1-6.9); NEUTROPHILS % 61.9 % (38.7-80.0); PLATELET COUNT 183 x10e3/uL (140-360); RED BLOOD COUNT 2.63 x10e6/uL (4.3-5.7)
[2017-10-14] MEDS: HYDRALAZINE HCL 10 MG TAB PO SCH (17:15)
[2017-10-14] MEDS: TAMSULOSIN HCL 0.4 MG CAP PO SCH (20:47)
[2017-10-14] MEDS: SIMVASTATIN 20 MG TAB PO SCH (20:48)
[2017-10-14] MEDS: SENNOSIDES 8.6 MG TAB PO SCH (20:48)
[2017-10-15 00:13] VITALS: BP 157/68
[2017-10-15 05:17] VITALS: BP 170/74
[2017-10-15 08:36] VITALS: BP 166/72
[2017-10-15] MEDS: ASPIRIN 81 MG CHEW TAB PO SCH (09:27)
[2017-10-15] MEDS: AMIODARONE HCL 200 MG TAB PO SCH (09:27)
[2017-10-15] MEDS: HYDRALAZINE HCL 10 MG TAB PO SCH (09:27)
[2017-10-15] MEDS: CITALOPRAM HYDROBROMIDE 20 MG TAB PO SCH (09:27)
[2017-10-15] MEDS: SUCRALFATE 1 GM TAB PO SCH (09:27)
[2017-10-15] MEDS: CARVEDILOL 12.5 MG TAB PO SCH (09:27)
[2017-10-15] MEDS: FERROUS SULFATE 325 MG TAB PO SCH (09:27)
[2017-10-15] MEDS: PANTOPRAZOLE SOD 40 MG TABEC PO SCH (09:27)
[2017-10-15] MEDS: RIVASTIGMINE TARTRATE 1.5 MG CAP PO SCH (09:27)
[2017-10-15] MEDS: INSULIN REGULAR, HUMAN 100 UNIT/1 ML 3ML VIAL SQ SCH ×2 (09:27→12:03)
[2017-10-15] MEDS: FOLIC ACID 1 MG TAB PO SCH (09:28)
[2017-10-15] MEDS: MEMANTINE 10 MG TAB PO SCH (09:28)
[2017-10-15] MEDS: POLYETHYLENE GLYCOL 3350 17 GM PACK PO SCH (09:28)
[2017-10-15] MEDS: MULTIVITAMINS/MINERALS TAB PO SCH (09:28)
[2017-10-15 11:27] VITALS: BP 141/66
== END 2017-10-15 13:10 | DRG 69 ==
LOC: ER 17:05 → ERHOLD 20:37 → IMCU 21:39 → OBSVTOIN 10-09 07:33 → MED/SURG3 10-09 19:14
PROVIDERS: ADMIT Internal Medicine Critical Care Medicine; ATTEND Internal Medicine Critical Care Medicine
DX: G45.9 Transient cerebral ischemic attack, unspecified (principal); G93.41 Metabolic encephalopathy; N17.9 Acute kidney failure, unspecified; E44.1 Mild protein-calorie malnutrition; I12.9 Hypertensive chronic kidney disease with stage 1 through stage 4 chronic kidney disease, or unspecified chronic kidney disease; E11.22 Type 2 diabetes mellitus with diabetic chronic kidney disease; N18.3 Chronic kidney disease, stage 3 (moderate); I25.10 Atherosclerotic heart disease of native coronary artery without angina pectoris; Z95.1 Presence of aortocoronary bypass graft; Z79.01 Long term (current) use of anticoagulants; D50.0 Iron deficiency anemia secondary to blood loss (chronic); G30.9 Alzheimer's disease, unspecified; F02.80 Dementia in other diseases classified elsewhere, unspecified severity, without behavioral disturbance, psychotic disturbance, mood disturbance, and anxiety; Z88.2 Allergy status to sulfonamides; N40.0 Benign prostatic hyperplasia without lower urinary tract symptoms; I48.0 Paroxysmal atrial fibrillation; E78.5 Hyperlipidemia, unspecified; F41.8 Other specified anxiety disorders; Z95.0 Presence of cardiac pacemaker; D63.8 Anemia in other chronic diseases classified elsewhere; K59.00 Constipation, unspecified; M15.0 Primary generalized (osteo)arthritis
CPT/HCPCS: 36415; 70450; 71045; 71046; 80048; 80053; 80061; 81001; 82270; 82550; 82553; 82607; 82728; 82747; 82948; 83036; 83540; 83735; 84466; 84484; 85014; 85018; 85025; 85045; 85610; 85730; 86850; 86900; 86920; 92523; 93005; 93306; 93880; 96361; 97139; 99285; G0378; J1644; J7030; J7040